=== PATIENT | male | born 1935 | race Caucasian/White ===

== ENCOUNTER → 2020-06-22 | Outpatient (CLI) | payer SELFPAY | LOC: M LABSMTC 11:16 | PROVIDERS: ATTEND Pediatrics | DX: Z11.59 Encounter for screening for other viral diseases (principal) ==

== ENCOUNTER 2020-09-30 09:27 | Emergency (ER) | payer MEDICARE, BC, OTHER ==
[~2020-09-30] VITALS: Ht 177.8 cm; Wt 77.3 kg
--- NOTE | 2020-09-30 10:16 | REP ---
INDICATION: dizzy COMPARISON: 06/16/2014 TECHNIQUE: Axial noncontrast images from the skull base to the thoracic inlet with coronal reformations. This CT examination was performed using the following dose reduction techniques: Automated exposure control, adjustment of mA and/or kv according to the patient's size, and use of iterative reconstruction technique. FINDINGS: Age-related atrophy and microvascular ischemic changes are appreciated. The ventricles and sulci are symmetric. Burnham-white differentiation is maintained. There is no evidence for acute intracranial hemorrhage, mass/mass effect, pathology or infarction. No extra-axial fluid collection. Calvarium is intact. Paranasal sinuses and mastoid air cells are clear. IMPRESSION: Age related atrophy and microvascular ischemic changes. No acute intracranial hemorrhage, infarction, or mass/mass effect. <Electronically signed by Chi Britton > 09/30/20 [id number]
[2020-09-30 10:51] LABS: BASO % 0.3 % (0.0-1.0); EOS # 0.1 10^3/uL (0.0-0.5); EOS % 1.4 % (0.0-3.0); HEMATOCRIT 45.6 % (42.0-52.0); HEMOGLOBIN 14.3 g/dl (13.5-17.5); LYMPH % 29.1 % (24.0-44.0); MEAN CORPUSCULAR HEMOGLOBIN 27.6 pg (27.0-33.0); MEAN CORPUSCULAR HGB CONC 31.4 g/dl (32.0-36.5); MONO # 0.6 10^3/uL (0.0-0.8); MONO % 8.5 % (2.0-8.0); NEUTROPHILS # 4.2 10^3/uL (1.5-8.5); NEUTROPHILS % 60.3 % (36.0-66.0); PLATELET COUNT, AUTOMATED 197 10^3/uL (150-450); RED BLOOD COUNT 5.18 10^6/uL (4.30-6.10)
[2020-09-30] MEDS ORDERED: LISI-898 PO (10:59)
[2020-09-30] MEDS ORDERED: ROSU40TA4 PO (10:59)
[2020-09-30] MEDS ORDERED: DONE5TAB82 PO (10:59)
[2020-09-30] MEDS ORDERED: SERT50TA29 PO (10:59)
[2020-09-30] MEDS ORDERED: prilosec (11:02)
[2020-09-30] MEDS ORDERED: ASPI81CH33 PO (11:02)
[2020-09-30 11:30] LABS: ALBUMIN 3.6 GM/DL (3.2-5.2); BILIRUBIN,DIRECT 0.2 MG/DL (0.0-0.2); BILIRUBIN,TOTAL 0.8 MG/DL (0.2-1.0); CREATININE FOR GFR 1.48 MG/DL (0.70-1.30); GLOMERULAR FILTRATION RATE 48.2 (>35); POTASSIUM SERUM 4.7 MEQ/L (3.5-5.1); THYROID STIMULATING HORMONE 2.7 uIU/ML (0.358-3.740); TOTAL PROTEIN 6.6 GM/DL (6.4-8.2)
--- NOTE | 2020-09-30 12:35 | REP ---
INDICATION: CHEST PAIN. COMPARISON: Comparison chest x-ray June 16, 2014. TECHNIQUE: Portable upright AP chest radiograph. FINDINGS: EKG monitoring electrodes are seen. The patient is status post prior median sternotomy. Mild cardiomegaly is observed unchanged. Pulmonary vasculature is not increased. No infiltrate is seen in the lung saenz. Pleural angles are sharp. The thoracic aorta is somewhat tortuous. No acute bony abnormality.. IMPRESSION: Mild cardiomegaly prior sternotomy unchanged. No evidence of pleural effusion or pulmonary edema.. <Electronically signed by Francois Saravia > 09/30/20 [id number]
[2020-09-30] MEDS ORDERED: SERTRALINE HCL 50 MG TAB PO ONE (13:10)
[2020-09-30] MEDS ORDERED: ROSUVASTATIN 10 MG TAB (CRESTOR) PO ONE (13:10)
[2020-09-30] MEDS ORDERED: lisinopriL 5 MG TAB PO ONE (13:10)
[2020-09-30] MEDS ORDERED: ASPIRIN 81 MG CHEW TABLET PO ONE (13:10)
[2020-09-30] MEDS ORDERED: OMEPRAZOLE 20 MG CAP PO ONE (13:10)
[2020-09-30 13:21] VITALS: BP 148/83
--- NOTE | 2020-09-30 16:45 | ECGEPIP ---
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
--- NOTE | 2020-09-30 16:58 | ECGEPIP ---
[facility] - ED Test Date: 2020-09-30 Pat Name: LUCILLE CALERO Department: Room: - Gender: Male [employer] C[employer]: : 1935 Requested By: Meghan Posada Order Number: [id number] Reading MD: Aguilar Francis Measurements Intervals [place] Rate: 68 P: ND: 176 QRS: -44 QRSD: 130 T: 101 QT: 386 QTc: 410 Interpretive Statements Normal sinus rhythm Left axis deviation Left ventricular hypertrophy with QRS widening and repolarization abnormality Delayed anterior R wave progression Similar to tracing done at 0950 on the same date Electronically Signed on 09-30-2020 16:58:08 EDT by Aguilar Francis
[2020-09-30 17:07] VITALS: BP 154/74
== END 2020-09-30 17:12 | disposition home or self-care (01) ==
LOC: M ED 09:27 → EDBD 09:27 → M ED 17:12
DX: R55 Syncope and collapse (principal); I44.7 Left bundle-branch block, unspecified; I11.9 Hypertensive heart disease without heart failure; Z95.5 Presence of coronary angioplasty implant and graft; Z95.1 Presence of aortocoronary bypass graft; Z87.891 Personal history of nicotine dependence; Z79.899 Other long term (current) drug therapy; Z79.82 Long term (current) use of aspirin

== ENCOUNTER 2021-08-19 10:38 | Emergency (ER) | payer MEDICARE, BC, OTHER ==
[~2021-08-19 10:38] MED LIST: ASPI81CH33 PO; DONE5TAB82 PO; LISI5TAB11 PO; ROSU40TA4 PO; SERT50TA29 PO; prilosec
[2021-08-19] MEDS ORDERED: TENECTEPLASE 50 MG KIT (TNKase) (J3101 PER 1MG) As Ordered ONE (10:43)
[2021-08-19] MEDS ORDERED: ETOMIDATE INJ 20MG/10ML VIAL As Ordered ONE (11:00)
[2021-08-19] MEDS ORDERED: CARV3.12 PO (14:09)
[2021-08-19] MEDS ORDERED: MEMA10TA19 PO (14:09)
[2021-08-19 14:16] LABS: RSV AMPLIFICATION NEGATIVE (NEGATIVE)
== END 2021-08-19 17:04 | disposition expired ==
LOC: M ED 10:38 → EDBD 10:38 → EDSEX 10:38 → M ED 17:04
DX: I21.9 Acute myocardial infarction, unspecified (principal); I47.2 Ventricular tachycardia; I25.10 Atherosclerotic heart disease of native coronary artery without angina pectoris; Z79.82 Long term (current) use of aspirin; Z79.899 Other long term (current) drug therapy